=== PATIENT | female | born 1975 | race African-American/Black ===

== ENCOUNTER 2022-12-29 08:19 | Emergency (ER) | payer MEDICAID ==
[~2022-12-29] VITALS: Ht 182.9 cm; Wt 97.4 kg
[2022-12-29 08:32] VITALS: BP 138/82
[2022-12-29] MEDS ORDERED: FLUC150T46 MT (09:27)
[2022-12-29] MEDS ORDERED: GLIP5TAB12 MT (09:27)
[2022-12-29] MEDS ORDERED: METF-416 MT (09:27)
[2022-12-29] MEDS ORDERED: FLUCONAZOLE 100MG TABLET PO ONE (09:30)
[2022-12-29 10:00] LABS: CLARITY URINE CLEAR (CLEAR); COLOR URINE YELLOW (YELLOW); KETONES URINE NEGATIVE (NEGATIVE); LEUKOCYTE ESTERASE URINE NEGATIVE (NEGATIVE); NITRITE URINE NEGATIVE (NEGATIVE); OCCULT BLOOD URINE NEGATIVE (NEGATIVE); PH URINE 5.5 (4.5-8.0); PROTEIN URINE NEGATIVE (NEGATIVE); SPECIFIC GRAVITY URINE 1.019 (1.005-1.030)
== END 2022-12-29 11:17 | disposition home or self-care (01) ==
LOC: ER 08:19
DX: E11.9 Type 2 diabetes mellitus without complications (principal); B37.31 Acute candidiasis of vulva and vagina; Z98.890 Other specified postprocedural states
CPT/HCPCS: 81003; 99283